=== PATIENT | male | born 1990 | race African-American/Black ===

== ENCOUNTER 2018-08-10 20:13 | Emergency (ER) | payer SELFPAY ==
[~2018-08-10] VITALS: Ht 182.9 cm; Wt 72.0 kg
[2018-08-10] MEDS ORDERED: SODIUM CHLORIDE 0.9% 1,000 ML IV ONE (20:54)
[2018-08-10] MEDS ORDERED: TETANUS, DIPHTHERIA, PERTUSSIS VAC/PF 0.5ML (>7YR OLD) IM ONE (21:00)
[2018-08-10] MEDS ORDERED: LORAZEPAM 2MG/ML CPJ IV ONE (21:00)
[2018-08-10] MEDS ORDERED: OLANZAPINE 5MG TABLET ODT PO ONE (21:00)
[2018-08-10 21:39] LABS: BASOPHILS % 0.4 % (0.0-2.0); EOSINOPHILS % 0.1 % (0.0-5.0); HEMATOCRIT. 46.6 % (42.0-52.0); HEMOGLOBIN. 15.5 g/dL (14.0-18.0); MEAN CORPUSCULAR HEMOGLOBIN 30.8 pg (28.0-32.0); MEAN CORPUSCULAR VOLUME 92.7 fL (80.0-94.0); MEAN PLATELET VOLUME 9.1 fl (7.4-10.4); MONOCYTES % 9.3 % (2.0-8.0); NEUTROPHILS % 77.2 % (40.0-76.0); PLATELET 268 x1000/uL (130-400); RED BLOOD CELL COUNT 5.03 mill/uL (4.7-6.1); RED CELL DISTRIBUTION WIDTH 13.4 % (11.6-14.6)
[2018-08-10 21:41] LABS: CHLORIDE 107 mEq/L (98-107)
[2018-08-10 21:44] LABS: ETHANOL BLOOD < 10 mg/dL
[2018-08-10] MEDS ORDERED: FOLIC ACID 1 MG, THIAMINE HCL 100 MG, MVI, ADULT NO.1 10 ML in DEXTROSE 5% WATER 1,000 ML IV ONE ×4 (22:15)
[2018-08-10 23:08] LABS: *AMPHETAMINES SCREEN URINE NEGATIVE (NEGATIVE); *BARBITURATES SCREEN URINE NEGATIVE (NEGATIVE); *BENZODIAZEPINES SCREEN URINE NEGATIVE (NEGATIVE); *COCAINE SCREEN URINE NEGATIVE (NEGATIVE)
[2018-08-10 23:09] LABS: CANNABINOID URINE SCREEN PRESUMTIVE POSITIVE (NEGATIVE); METHADONE URINE SCREEN NEGATIVE (NEGATIVE); OPIATES URINE SCREEN NEGATIVE (NEGATIVE); PHENCYCLIDINE URINE SCREEN NEGATIVE (NEGATIVE)
[2018-08-11 05:35] VITALS: BP 121/79
== END 2018-08-11 05:38 | disposition home or self-care (01) ==
LOC: ER 20:13
DX: R46.2 Strange and inexplicable behavior (principal); S20.319A Abrasion of unspecified front wall of thorax, initial encounter; S40.812A Abrasion of left upper arm, initial encounter; S40.811A Abrasion of right upper arm, initial encounter; G92 Toxic encephalopathy; E16.2 Hypoglycemia, unspecified; F12.10 Cannabis abuse, uncomplicated; X58.XXXA Exposure to other specified factors, initial encounter; Y93.9 Activity, unspecified; Y92.89 Other specified places as the place of occurrence of the external cause; Z78.1 Physical restraint status
CPT/HCPCS: 36415; 80048; 80305; 80307; 80320; 80329; 82962; 85025; 90471; 90715; 96365; 96366; 96375; 99283; J2060; J3411; J3490; J7030; J7070; G0480